=== PATIENT | male | born 1995 | race Two or more races ===

== ENCOUNTER 2021-09-07 16:33 | Emergency (ER) | payer OTHER ==
[~2021-09-07] VITALS: Ht 188 cm; Wt 140.6 kg
== END 2021-09-07 19:20 | disposition home or self-care (01) ==
LOC: ER 16:33
DX: U07.1 COVID-19 (principal)

== ENCOUNTER 2021-09-10 08:30 | Outpatient (CLI) | payer OTHER | END 2021-09-10 10:10 | disposition home or self-care (01) | LOC: ASH CLINIC 08:30 | PROVIDERS: ATTEND General Practice | DX: U07.1 COVID-19 (principal); Z23 Encounter for immunization ==

== ENCOUNTER 2021-10-07 17:41 | Emergency (ER) | payer OTHER ==
[~2021-10-07] VITALS: Ht 180.3 cm; Wt 113.4 kg
[2021-10-07] MEDS ORDERED: AMOX-CLAV 875-1 EACH PO (21:21)
[2021-10-07] MEDS ORDERED: PEPCID AC20 MG PO (21:21)
[2021-10-07] MEDS ORDERED: INTESTINEX680 M1 PO (21:21)
[2021-10-07] MEDS ORDERED: ACETAMINOPHEN650 M2 PO (21:21)
== END 2021-10-07 21:27 | disposition home or self-care (01) ==
LOC: ER 17:41
DX: A49.3 Mycoplasma infection, unspecified site (principal); J06.9 Acute upper respiratory infection, unspecified; Z20.822 Contact with and (suspected) exposure to COVID-19

== ENCOUNTER → 2022-03-08 | Emergency (ER) | payer OTHER ==
[~2022-03-08] VITALS: Ht 180.3 cm; Wt 122.5 kg
[~2022-03-08] MED LIST: ACETAMINOPHEN650 M2 PO; AMOX-CLAV 875-1 EACH PO; INTESTINEX680 M1 PO; PEPCID AC20 MG PO
== END | disposition left against medical advice (07) ==
LOC: ER 04:18
DX: Z53.21 Procedure and treatment not carried out due to patient leaving prior to being seen by health care provider (principal)

== ENCOUNTER 2022-06-29 08:37 | Emergency (ER) | payer OTHER ==
[~2022-06-29] VITALS: Ht 177.8 cm; Wt 114.8 kg
[~2022-06-29 08:37] MED LIST changes: +ACETAMINOPHEN650 M2
== END 2022-06-29 11:20 | disposition home or self-care (01) ==
LOC: ER 08:37
DX: J22 Unspecified acute lower respiratory infection (principal); R53.81 Other malaise; Z20.822 Contact with and (suspected) exposure to COVID-19